=== PATIENT | female | born 1990 | race Caucasian/White ===

== ENCOUNTER 2020-02-01 20:41 | Emergency (ER) | payer BC ==
[~2020-02-01] VITALS: Ht 172.7 cm; Wt 77.1 kg
[2020-02-01 21:00] VITALS: BP 118/73
[2020-02-01 21:51] LABS: BASOPHILS % (AUTO) 0 % (0-1); EOSINOPHILS % (AUTO) 1 % (1-7); LYMPHOCYTES % (AUTO) 51 % (22-44); MEAN CORPUSCULAR HEMOGLOBIN 28.8 pg (27.0-34.8); MEAN CORPUSCULAR HGB CONC 33.3 g/dL (32.4-35.8); MEAN PLATELET VOLUME 8.9 fL (7.4-10.4); MONOCYTES % (AUTO) 7 % (2-9); NEUTROPHILS % (AUTO) 42 % (42-75); PLATELET COUNT 267 x10^3/uL (130-400); RED BLOOD COUNT 4.42 x10^6/uL (3.82-5.3); RED CELL DISTRIBUTION WIDTH 12.9 % (9.6-15.2)
[2020-02-01 22:03] LABS: ANION GAP 8 mmol/L (5-15); CALCIUM 8.6 mg/dL (8.5-10.1); CHLORIDE 112 mmol/L (98-107); CREATININE 0.94 mg/dL (0.55-1.02)
[2020-02-01 22:04] LABS: SALICYLATE LEVEL < 1.7 mg/dL (2.8-20.0)
--- NOTE | 2020-02-01 22:08 | NUR ---
Pt comes in with complaints of feeling suicidal. States that it has been going for awhile. Patient stated that she stopped taking her zoloft apporx 1.5 weeks ago. Pt states that she was put on the zoloft around June when everything was shut down and did a tele visit with a doctor who put her on it for aneixty. Pt states that she has thoughts of just not understanding why she is here (meaning the world) Pt stated that she had 6 drinks tonight and her brought her here to be evaluated because she was "making statements of wanting to kill herself." MD in to see patient, patient changed clothes into a gown, and hospital socks given. Clothing bagged in personal bags and placed in locker, purse and cell phone given to (Carlos). Patient currently resting, blood and urine obtained. Frequent checks made. Will con't to monitor patient.
[2020-02-01 22:15] LABS: MD SCAN
[2020-02-01 22:31] LABS: AMPHETAMINE SCREEN, URINE Negative (Negative); BARBITURATE SCREEN, URINE Negative (Negative); BENZODIAZEPINE SCREEN, URINE Negative (Negative); CANNABINOID SCREEN, URINE Positive (Negative); COCAINE SCREEN, URINE Negative (Negative); METHADONE SCREEN, URINE Negative (Negative); OPIATE SCREEN, URINE Negative (Negative)
--- NOTE | 2020-02-01 23:47 | NUR ---
Telepsych monitor in room. Patient frusterated with having to do a televisit. Stating "this is why I'm here in the first place. Cause the doctors on the other end don't care they just give meds and thats it."
--- NOTE | 2020-02-02 00:27 | NUR ---
Patient called to check on status. Counseling Specialist gave update to . Contact info: Carlos Yuan [phone]
--- NOTE | 2020-02-02 00:57 | NUR ---
Packet faxed to [facility], [facility], [facility], [facility]
--- NOTE | 2020-02-02 01:24 | NUR ---
REPORT FROM NAHED KURTZ. PT AMBULATORY TO ROOM 2, ROOM SECURED, PT SLEEPING ON HOSPITAL BED. U [facility] DECORATOR TO BEDSIDE TO ASSESS FOR POTENTIAL ADMISSION.
[2020-02-02] MEDS ORDERED: ZIPRASIDONE 20 MG INJ IM ONE (01:30)
--- NOTE | 2020-02-02 01:49 | NUR ---
[facility] denies. via [place]. Will keep the packet in pending just in case a bed opens up.
--- NOTE | 2020-02-02 03:23 | NUR ---
[facility] accepts. Accepting doctor is Dr. Omalley. Via
== END 2020-02-02 06:59 ==
LOC: ED 21:29
DX: R45.851 Suicidal ideations (principal); F32.9 Major depressive disorder, single episode, unspecified
CPT/HCPCS: 36415; 80048; 80307; 81025; 82040; 84443; 85025; 99285